=== PATIENT | female | born 1970 | race Caucasian/White ===

== ENCOUNTER 2017-04-13 19:43 | Inpatient (IN) | payer OTHER ==
--- NOTE | ~2017-04-13 | HP ---
Unit #: [id number] #: [id number] Patient: ESPERANZA HAINES [id number] [place] [address] [id number] MR#: [id number] NAME: ESPERANZA HAINES ROOM: P171 Age: 46 Sex: F Admission Date: 04/13/2017 : 1970 Attending Physician: Jaiden Rojo M.D. Admitting Physician: Jaiden Rojo M.D. Primary Care Physician: Primary Care Physician No HISTORY AND PHYSICAL HISTORY OF PRESENT ILLNESS Esperanza is a 46 year old admitted to [facility] because of her continued drug use. She shoots heroin. PAST MEDICAL HISTORY 1. Long history of opioid abuse to include IV heroin. 2. Hepatitis C. 3. Seizure disorder. PAST SURGICAL HISTORY Appendectomy. ALLERGIES Penicillin (anaphylaxis). SOCIAL HISTORY Smokes greater than 1 pack per day. Denies alcohol. Admits to a long history of opioid abuse to include IV heroin. FAMILY HISTORY Medically noncontributory. REVIEW OF SYSTEMS CONSTITUTIONAL: No fever or chills. HEENT: Denies any sore throat, ear pain or runny nose. CARDIOVASCULAR: Denies chest pain, irregular heart rhythm or palpitations. CHEST: Denies shortness of breath or cough. No hemoptysis. GASTROINTESTINAL: Denies nausea, vomiting, diarrhea or chronic constipation. ENDOCRINE: Denies history of increased thirst or urination. No recent significant weight loss or gain. GENITOURINARY: Denies dysuria, frequency, or hematuria. SKIN: Denies any rashes. HEMATOLOGIC: Denies history of increased bleeding or bruising. MUSCULOSKELETAL: Denies any hot, swollen joints. No generalized muscle pain. NEUROLOGIC: Denies problems with vision or speech. No frequent, severe headaches. No numbness, tingling or weakness in any extremities. Denies loss of bladder or bowel control. CURRENT MEDICATIONS 1. Detox protocol. 2. Celexa 40 mg daily. Unit #: [id number] #: [id number] Patient: ESPERANZA HAINES 3. Claritin 10 mg daily. 4. Lipitor 40 mg q.h.s. 5. Keppra 500 mg b.i.d. PHYSICAL EXAMINATION GENERAL: Alert, well-nourished, in no apparent distress. VITAL SIGNS: Blood pressure 132/82, heart rate 80, respirations 16, temperature 98.6. WEIGHT: 123. HEIGHT: 5 feet 10 inches. SKIN: Warm and dry without rash or lesion. HEENT: Normocephalic. TMs not viewed. Oral and nasal passages clear. Conjunctivae clear. PERRLA. EOMs intact. NECK: Supple without lymphadenopathy or thyromegaly. HEART: Regular rate and rhythm without murmur. LUNGS: Clear. ABDOMEN: Soft, nontender. : Not done. EXTREMITIES: No evidence of cyanosis, clubbing or edema. Moves all without focal deficit. NEUROLOGICAL: Grossly within normal limits. Cranial Nerves: II: Visual clark are intact. III, IV AND : Extraocular movements are intact. Pupils are equal, round and reactive to light. V: Facial sensation is grossly normal. VII: Facial movements and expression are normal. VIII: Auditory acuity grossly intact. IX, X: Uvula is midline. Phonation is normal. XI: Patient shrugs shoulders and turns head normally. XII: Tongue protrudes in the midline. Sensory and Motor Function: Sensory and motor sensation is grossly normal. Motor: moves all extremities well. Coordination: Gait is normal. Deep Tendon Reflexes: Intact. IMPRESSION Psychiatric admission. RECOMMENDATIONS PSYCHIATRIC: Per psychiatrist. MEDICAL: See no contraindications to participate in facility's activities. MEDICAL PROGNOSIS Good. MEDICAL CONDITION Stable. Dictated by... Laura Malcolm P.A.-C. for Cintia Wiley/ki TD: 04/14/2017 20:04 JOB #: [id number] Unit #: [id number] #: [id number] Patient: ESPERANZA HAINES HISTORY AND PHYSICAL Page 1 of 1 X Laura Malcolm HISTORY AND PHYSICAL
--- NOTE | ~2017-04-13 | A ---
[facility] Nutrition Therapy DATE: 04/14/17 Patient: YAN HAINES Physician: VAISHALI Address: [address] [facility] Room/Bed: [address], Zip: [place] [address] Admit Date: 04/13/17 Date of : [birth year] Height: 5 10 Weight: [id number] NUTRITIONAL ASSESSMENT: REASON: LOW BMI (17.6) PATIENT ADMITTED FOR HEROIN AND METH DETOX PMH: SEIZURE DISORDER, ASTHMA, NERVE DAMAGE, HEP C Anthropometrics: HT: 5'10", WT: 123#, BMI: 17.6), %IBW: 82 Labs: NO NEW LABS AVAILABLE Meds: DETOX PROTOCOL Assessment: PATIENT IS A 46 Y/O FEMALE ADMITTED FOR HEROIN AND METH DETOX. PATIENT IS CURRENTLY UNEMPLOYED, HOMELESS, SMOKES 2 PPD, HAS DAILY HEROIN USE, FREQUENT METH USE FOR LAST 4 MONTHS, AND SHE HAS A HX OF MARIJUANA, ETOH, COCAINE, AND GABAPENTIN ABUSE. PATIENT HAS A HX OF INPATIENT/OUTPATIENT PSYCH AND CHEMICAL DEPENDENCY TREATMENT. UPON ADMIT PATIENT STATED A POOR APPETITE WITH A 40# WEIGHT LOSS X SEVERAL MONTHS, AND SHE HAS NOT BEEN SLEEPING. WEIGHT HX PER [employer] SHOWS A 9# WEIGHT LOSS SINCE LAST ADMIT 6 MONTHS AGO, WHICH MAY BE ATTRIBUTED TO PATIENT'S METH ABUSE. CURRENT PO INTAKES ARE UNAVAILABLE. PATIENT IS ON A REGULAR DIET WITH NO CAFFEINE, AND RECEIVES LARGE PORTION ENTREES. Dx: INADEQUATE NUTRIENT INTAKE R/T CURRENT CONDITION, DRUG USE AEB LOW BMI, <90% IBW, SELF-REPORTED WEIGHT LOSS AND DECREASED APPETITE Intervention: REGULAR DIET, LARGE PORTIONS, MEDS PER MD, DETOX, PSYCH Monitoring, Evaluation and Goals: 1. ADEQUATE PO INTAKES >50% OF MEALS 2. PREVENT, CORRECT MICRO/MACRO NUTRIENT DEFICIENCIES 3. PROMOTE A STEADY WEIGHT GAIN TOWARDS A HEALTHY BMI OF 19-25 MONITOR: WEIGHTS, LABS, PO/FLUID INTAKES Recommendations: 1. CONTINUE REGULAR DIET WITH NO CAFFEINE AND LARGE PORTION ENTREES TOLERATED. OFFER SNACKS BETWEEN MEALS 2. ENCOURAGE ADEQUATE PO AND FLUID INTAKES 3. OBTAIN WEIGHTS ROUTINELY (EVERY 3-4 DAYS) 4. IF PO INTAKES ARE BELOW 50% OF MEALS PLEASE ORDER ENSURE BID TO PROMOTE ADEQUATE KCAL [facility] Nutrition Therapy DATE: 04/14/17 Patient: YAN HAINES Physician: VAISHALI Address: [address] [facility] Room/Bed: [address], [place]: [place] [address] Admit Date: 04/13/17 Date of : [birth year] Height: 5 10 Weight: [id number] AND PROTEIN INTAKES 5. RD WILL CONTINUE TO F/U WITH PATIENT'S WEIGHT AND PO INTAKES RD TO F/U PER PROTOCOL AND PRN R/T PATIENT MILDLY COMPROMISED Respectfully, YAMILE TOWNSEND RD, LD Food and Nutritional Services [facility] cc: client file
--- NOTE | ~2017-04-13 | DS ---
Unit #: [id number] #: [id number] Patient: YAN HAINES [id number] [place] [address] [id number] MR#: [id number] NAME: YAN HAINES ROOM: P171 Age: 46 Sex: F Admission Date: 04/13/2017 : 1970 Discharge Date: 04/16/2017 Attending Physician: Jaiden Rojo M.D. Primary Care Physician: No Primary Care Physician DISCHARGE SUMMARY REASON FOR ADMISSION The patient is a 46-year-old white female admitted to the [facility] unit with a history of polysubstance dependence and dysphoric mood. HOSPITAL COURSE The patient was admitted to the [facility] unit and placed on routine detoxification protocol for opioids. She was continued on her home medications and was given Seroquel 100 mg at nighttime. The patient's home medications of Lipitor, Celexa, Claritin and Motrin were continued. The patient's stay in the hospital was eventful and her detox went smoothly. She actively participated within the therapeutic milieu. She was in agreement with the plan for followup in the intensive outpatient program and discharge was ordered as per her request on 04/16/2017. FINAL DIAGNOSES 1. Opioid use disorder. 2. Dyslipidemia. 3. Dysthymic disorder. 4. Environmental allergies. 5. Hepatitis C. DISPOSITION The patient is discharged home. DISCHARGE MEDICATIONS 1. Lipitor 40 mg at nighttime for dyslipidemia. 2. Celexa 40 mg daily for depression. 3. Claritin 10 mg daily for environmental allergies. 4. Seroquel 100 mg at nighttime. 5. Motrin 800 mg q.8 h. p.r.n. pain. 6. Dulera 2 puffs b.i.d. for shortness of air. RESTRICTIONS No dietary or physical restrictions were placed on the patient at discharge. FOLLOWUP She will follow up in the intensive outpatient program provided at this facility. PROGNOSIS Considered fair. Unit #: [id number] #: [id number] Patient: YAN HAINES Dictated by... Cintia Godfrey TD: 04/17/2017 14:55 JOB #: [id number] DISCHARGE SUMMARY Page 1 of 1 X Jaiden Rojo MD DISCHARGE SUMMARY
--- NOTE | ~2017-04-13 | PN ---
Unit #: [id number] #: [id number] Patient: YAN HAINES [id number] [facility] [address] [place] [address] [id number] MR#: [id number] NAME: YAN HAINES ROOM: [facility] Age: 46 Sex: F Admission Date: 04/13/2017 : 1970 Attending Physician: Jaiden Rojo M.D. Admitting Physician: Jaiden Rojo M.D. Primary Care Physician: Primary Care Physician Darleen BEEBE NOTES DATE 04/15/2017 DISCUSSION The patient continues to complain of significant physical distress related to opioid withdrawal. She does appear to be in significant physical distress but has become a bit more active within the therapeutic milieu. Dictated by... Jaiden Rojo M.D. CB/bzg TD: 04/15/2017 14:20 JOB #: [id number] ALMA DELIA BEEBE NOTES Page 1 of 1 X Jaiden Rojo MD X PROGRESS NOTE
--- NOTE | ~2017-04-13 | PA ---
Unit #: [id number] #: [id number] Patient: YAN HAINES [id number] [place] [address] [id number] MR#: [id number] NAME: YAN HAINES ROOM: P171 Age: 46 Sex: F Admission Date: 04/13/2017 : 1970 Date of Assessment: 04/14/2017 Attending Physician: Jaiden Rojo M.D. Admitting Physician: Jaiden Rojo M.D. Primary Care Physician: Primary Care Physician No PSYCHIATRIC ASSESSMENT IDENTIFYING INFORMATION The patient is a 46-year-old homeless white female admitted with recurrent abuse of methamphetamine and heroin. INFORMANT(S) Patient. RELIABILITY Fair. CHIEF COMPLAINT I overdosed. HISTORY OF PRESENT ILLNESS The patient is a 46-year-old white female with a long history of methamphetamine and opiate abuse. She reports that a recent unintentional overdose led her to come to this facility to seek treatment. She was last discharged from this facility in October of this year. The patient reports that she is currently homeless and staying in the [place], staying from place to place. She reports intravenous substance use as noted previously. For a more complete history of present illness, please refer to previous dictated notes. PAST PSYCHIATRIC HISTORY Reviewed, no changes. FAMILY HISTORY/SOCIAL HISTORY Reviewed, no changes. MEDICAL HISTORY Reviewed, no changes. MEDICATION HISTORY 1. Symbicort. 2. Seroquel. 3. Gabapentin. 4. Keppra. 5. Claritin. 6. Celexa. 7. Ibuprofen. 8. Lipitor. ALLERGIES Unit #: [id number] #: [id number] Patient: YAN HAINES Penicillin. MENTAL STATUS EXAM At this time, reveals the patient to be a thin, disheveled white female appearing her stated age. She is in no apparent physical distress at time of examination. She is awake, alert, oriented in all spheres. Her mood is mildly dysphoric. Her affect constricted. Speech is generally relevant and coherent. There are no gross deficits in memory or cognition noted. Intelligence is judged to be in the average range based on fund of knowledge. The patient is cooperative throughout the interview. She is currently endorsing no suicidal or homicidal ideation or psychotic features. Judgement and insight appear to be reasonably intact. ASSETS AND LIABILITIES Patient's assets to be assessed. Liabilities, lack of resources, ongoing substance use. ADMITTING DIAGNOSES 1. Opioid use disorder. 2. Methamphetamine use disorder. 3. Seizure disorder. 4. Chronic obstructive pulmonary disease. 5. Dyslipidemia. 6. Environmental allergies. PSYCHIATRIC PLAN/TREATMENT GOALS The patient remains hospitalized for safety and stabilization. Home medications will be restarted including Symbicort, Keppra, Celexa, Claritin and ibuprofen and Lipitor. I will not re-initiate low dose Seroquel and gabapentin will be discontinued given its abuse potential. The patient will participate in appropriate pickering and milieu activities and is expressing interest in residential chemical dependence treatment. Dictated by... Jaiden Rojo M.D. SHARON/ki TD: 04/14/2017 17:45 JOB #: [id number] PSYCHIATRIC ASSESSMENT Page 1 of 1 X Jaiden Rojo MD X PSYCHIATRIC ASSESSMENT
[2017-04-14 12:22] LABS: BASOPHIL% 0.6 % (0-2.5); DIFF IND NO; EOSINOPHIL# 0.1 X10e3 (0-0.7); EOSINOPHIL% 2.2 % (0.0-7.0); HEMATOCRIT 41.1 % (35.0-45.0); HEMOGLOBIN 13.1 gm/dL (12.0-16.0); LYMPHOCYTE# 2.2 X10e3 (1.0-3.5); LYMPHOCYTE% 40.1 % (17.0-45.0); MEAN CELL VOLUME 92.1 FL (83-96); MEAN CORPUSCULAR HEMOGLOBIN 29.3 PG (28-34); MEAN CORPUSCULAR HGB CONC 31.9 g/dL (30-36); MEAN PLATELET VOLUME 8.3 FL (6.5-11.5); MONOCYTE# 0.3 X10e3 (0-1.0); MONOCYTE% 5.3 % (3.0-12.0); NEUTROPHIL# 2.8 X10e3 (1.5-7.1); NEUTROPHIL% 51.8 % (40-75); PLATELET COUNT 204 X10e3 (140-420); RED BLOOD COUNT 4.46 X10e (3.90-5.30); RED CELL DISTRIBUTION WIDTH 14.2 % (11.0-15.5); WHITE BLOOD COUNT 5.4 X10e3 (4.0-10.5)
[2017-04-14 12:57] LABS: THYROID STIMULATING HORMONE 0.44 uIU/ml (0.34-5.60)
[2017-04-14 12:58] LABS: ALBUMIN SERUM 3.3 g/dL (3.5-5.0); BILIRUBIN,TOTAL 0.2 mg/dL (0.2-2.0); BUN/CREATININE RATIO 12.5; CALCIUM SERUM 8.7 mg/dL (8.4-10.2); CREATININE SERUM 0.8 mg/dL (0.6-1.4); GLOM FILT RATE Estimated 88.5 mL/min (>60); POTASSIUM 4.2 mmol/L (3.5-5.1); PROTEIN TOTAL SERUM 5.9 g/dL (6.0-8.3)
[2017-04-14 13:04] LABS: FREE THYROXIN (T4) 0.91 ng/dL (0.58-1.64)
[2017-04-20 13:35] LABS: HEP C AB (HEPPAN) Reactive (Nonreactive)
== END 2017-04-16 13:27 | disposition home or self-care (01) | DRG 897 ==
LOC: P1E 21:32
PROVIDERS: Specialist
PROC: HZ2ZZZZ Detoxification Services for Substance Abuse Treatment (ICD-10-PCS; principal; 2017-04-13)
DX: F11.20 Opioid dependence, uncomplicated (principal); J44.9 Chronic obstructive pulmonary disease, unspecified; Z88.0 Allergy status to penicillin; G40.909 Epilepsy, unspecified, not intractable, without status epilepticus; F17.210 Nicotine dependence, cigarettes, uncomplicated; E78.5 Hyperlipidemia, unspecified; F34.1 Dysthymic disorder
CPT/HCPCS: 80053; 84439; 84443; 85025; 86592; 86803; 87522; 87806